=== PATIENT | male | born 1985 | race Caucasian/White ===

== ENCOUNTER 2017-09-15 00:30 | Emergency (ER) | payer OTHER ==
[~2017-09-15] VITALS: Ht 167.6 cm; Wt 76.0 kg
[2017-09-15 00:32] VITALS: BP 116/77
[2017-09-15] MEDS ORDERED: CITA40TA12 PO (00:55)
[2017-09-15] MEDS ORDERED: AMPH15TA PO (00:55)
[2017-09-15] MEDS ORDERED: ALPR-475 PO (00:56)
[2017-09-15] MEDS ORDERED: BICILLIN-LA 1,200,000 UNITS/2 ML IM ONE (01:00)
[2017-09-15] MEDS ORDERED: HYDROcodone/APAP 5/325 TABLET PO ONE (01:00)
[2017-09-15] MEDS ORDERED: DEXAMETHASONE 4 MG TABLET PO ONE (01:00)
[2017-09-15] MEDS ORDERED: DEXAMETHASONE 4 MG TABLET ONE (01:14)
[2017-09-15] MEDS ORDERED: HYDROcodone/APAP 5/325 TABLET ONE (01:15)
== END 2017-09-15 02:06 ==
LOC: ED 01:00
DX: J02.0 Streptococcal pharyngitis (principal); J03.00 Acute streptococcal tonsillitis, unspecified; F41.9 Anxiety disorder, unspecified; F90.9 Attention-deficit hyperactivity disorder, unspecified type
CPT/HCPCS: 96372; 99283; J0561